=== PATIENT | female | born 1990 ===

== ENCOUNTER 2016-09-03 21:30 | Inpatient (IN) | payer OTHER ==
[2016-09-03] MEDS ORDERED: DEXTROSE 5%-LACTATED RINGERS 1,000 ML IV ONE (23:00)
[2016-09-03 23:02] LABS: BASOPHIL 0.4 % (0-2.0); EOSINOPHIL 1.6 % (0-4.5); MCH 30.9 pg (25.7-33.7); MCHC 33.6 g/dl (32.0-36.0); MEAN CELL VOLUME 91.9 fl (80-96); MEAN PLT VOLUME 10.1 fl (7.5-11.1); NEUTROPHILS 72.6 % (42.8-82.8); PLATELET COUNT 243 K/MM3 (134-434); RDW 12.9 % (11.6-15.6); WHITE BLOOD COUNT 9.8 K/mm3 (4.0-10.0)
[2016-09-03 23:16] LABS: INR 0.96 (0.82-1.09); PROTHROMBIN TIME (PATIENT) 10.5 SEC (9.98-11.88)
[2016-09-03 23:18] LABS: ACTIVATED PTT 23.3 SECONDS (26.9-34.4)
[2016-09-03 23:25] LABS: ANION GAP 10 (8-16); CALCIUM 8.6 mg/dL (8.5-10.1); CO2 23 mmol/L (21-32); CREATININE 0.6 mg/dL (0.55-1.02); GLUCOSE,RANDOM 83 mg/dL (74-106)
[2016-09-04 00:03] VITALS: BMI 30.7
[2016-09-04] MEDS ORDERED: DEXTROSE 5%-LACTATED RINGERS 1,000 ML IV SCH ×2 (01:51→08:00)
[2016-09-04] MEDS ORDERED: ELECTROLYTE-148 SOLN 1,000 ML IV ONE ×2 (03:30→06:00)
[2016-09-04] MEDS ORDERED: FENTANYL/BUPIVACAINE/NS/PF - PCEA - 50 ML DISP.SYRIN EP SCH ×2 (04:30→05:20)
[2016-09-04] MEDS: IBUPROFEN 600 MG TABLET (FP) PO PRN ×3 (07:45→22:39)
[2016-09-04] MEDS ORDERED: BENZOCAINE 28 GM HEMORRHOIDAL OINTMENT TP PRN (07:55)
[2016-09-04] MEDS ORDERED: BENZOCAINE 20% 57 GM BOTTLE TP PRN (07:55)
[2016-09-04] MEDS ORDERED: METHYLERGONOVINE MALEATE 0.2 MG/1 ML AMP IM PRN (07:55)
[2016-09-04] MEDS ORDERED: BISACODYL 10 MG SUPP.RECT RC PRN (07:55)
[2016-09-04] MEDS ORDERED: WITCH HAZEL 50% (TUCKS) 40 PAD/JAR PAD TP PRN (07:55)
[2016-09-04] MEDS ORDERED: D5W-LR W/ 20 UNITS OXYTOCIN 1,000 ML IV SCH (08:00)
--- NOTE | 2016-09-04 08:03 | HP ---
Past Medical History - Admission Chief Complaint: Rupture of membrane History of Present Illness: 26 yo @ 40 weeks gestation, EDC 09/03/16, presents c/o rupture of membrane. She c/o mild discomfort. History Source: Patient Limitations to Obtaining History: No Limitations - Past Medical History ...: 4 ...Para: 3 ...Term: 3 ...: 0 ...Spon : 0 ...Induced : 1 ...Multiple Gestation: 1 ...LMP: 11/28/15 ... Weeks Gestation by Dates: 40 ...EDC by Dates: 09/03/16 ...EDC by Sono: 09/03/16 - Past Surgical History Past Surgical History: Yes: Hx Myomectomy: No Hx Transabdominal Cerclage: No - Smoking History Smoking history: Never smoked Have you smoked in the past 12 months: No - Alcohol/Substance Use Hx Alcohol Use: No History of Substance Use: reports: None - Social History Usual Living Arrangement: Yes: With Significant Other History of Recent Travel: No Home Medications - Allergies Allergies/Adverse Reactions: Allergies Allergy/AdvReac Type Severity Reaction Status Date / Time acetaminophen [From Percocet] Allergy Intermediate Itching Verified 08/12/16 07: 52 Opioids - Morphine Analogues Allergy Intermediate Swelling Verified 08/12/16 07: 52 oxycodone HCl [From Percocet] Allergy Intermediate Itching Verified 08/12/16 07: 52 - Home Medications Home Medications: Ambulatory Orders Vitamins (Sj[facility]) - 1 tab PO DAILY 06/30/16 Review of Systems - Review of Systems Constitutional: reports: No Symptoms Eyes: reports: No Symptoms HENT: reports: No Symptoms Neck: reports: No Symptoms Cardiovascular: reports: No Symptoms Respiratory: reports: No Symptoms Gastrointestinal: reports: No Symptoms Genitourinary: reports: Pain, Other (Leakage of fluid) Breasts: reports: No Symptoms Reported Musculoskeletal: reports: No Symptoms Integumentary: reports: No Symptoms Neurological: reports: No Symptoms Endocrine: reports: No Symptoms Hematology/Lymphatic: reports: No Symptoms Psychiatric: reports: No Symptoms Pain Intensity: 4 Physical Exam - Maternity Vital Signs: Vital Signs Temperature 98.9 F 09/04/16 07:00 Pulse Rate 75 09/04/16 06:45 Respiratory Rate 20 09/04/16 06:45 Blood Pressure 114/65 09/04/16 06:45 O2 Sat by Pulse Oximetry (%) 99 09/04/16 05:30 Constitutional: Yes: Well Nourished Eyes: Yes: WNL, Conjunctiva Clear HENT: Yes: Atraumatic Neck: Yes: Supple Cardiovascular: Yes: Regular Rate and Rhythm Lungs: Clear to auscultation - Abdominal Exam/OB Number of Fetuses: Single Presentation: Vertex Contractions: Yes - Vaginal Exam/OB Presentation: Vertex/Position - Physical Exam Psychiatric: Yes: Alert, Oriented - Labs Lab Results: CBC, BMP 09/03/16 22:45 09/03/16 22:45 Problem List - Problems (1) Rupture of membranes with clear amniotic fluid Code(s): O42.019 - PRETRM THERESA ROM, ONSET LABOR W/N 24 HOURS OF RUPT, UNSP TRI Assessment/Plan Spontaneous rupture of membrane Admit to L&D Previous for twin delivery Analgesia as needed Anticipate
--- NOTE | 2016-09-04 08:05 | PN ---
Delivery - Delivery Vaginal Delivery: V-Leonora Type of Anesthesia: Epidural Episiotomy/Laceration: None EBL (cc): 300 Delivery, Single - Feeding Plan Initial Plan: Elected not to breastfeed exclusively throughout hospitalization
--- NOTE | 2016-09-04 08:11 | DS ---
Physical Exam-[employer] Vital Signs: Vital Signs Temperature 98.9 F 09/04/16 07:00 Pulse Rate 75 09/04/16 06:45 Respiratory Rate 20 09/04/16 06:45 Blood Pressure 114/65 09/04/16 06:45 O2 Sat by Pulse Oximetry (%) 99 09/04/16 05:30 Constitutional: Yes: Well Nourished Eyes: Yes: Conjunctiva Clear HENT: Yes: Atraumatic Neck: Yes: Supple, Trachea Midline Cardiovascular: Yes: Regular Rate and Rhythm Respiratory: Yes: Regular, CTA Bilaterally Gastrointestinal: Yes: Normal Bowel Sounds Pelvis: Yes: WNL External Genitalia: Yes: Normal Vaginal Exam: Yes: Bleeding Cervix: Yes: Normal Uterus: Yes: Firm ....Post : Yes: Uterus firm, Moderate lochia serosa Breast(s): Yes: WNL Musculoskeletal: Yes: WNL Wound/Incision: Yes: Clean/Dry, Well Approximated Neurological: Yes: Alert, Oriented ...Motor Strength: WNL Psychiatric: Yes: Alert, Oriented Labs: CBC, BMP 09/03/16 22:45 09/03/16 22:45 Delivery - Delivery Vaginal Delivery: V-Leonora Type of Anesthesia: Epidural Episiotomy/Laceration: None EBL (cc): 300 Delivery, Single - Feeding Plan Initial Plan: Elected not to breastfeed exclusively throughout hospitalization Remarks - Remarks Remarks: Normal vaginal delivery after previous Nose / Oropharynx suctioned @ perineum. Cord clamped and cut. Placenta expelled spontaneously intact. Discharge Summary Reason For Visit: LABOR ADMIT Current Active Problems Rupture of membranes with clear amniotic fluid (Acute) Vaginal delivery following previous section, delivered (Acute) Procedures: Principal: Hospital Course: Routine care Condition: Good - Instructions Diet, Activity, Other Instructions: Regular diet No douching, no sexual intercourse x 6 weeks F/U in clinic in 6 weeks Disposition: HOME - Home Medications Comprehensive Discharge Medication List: Ambulatory Orders Vitamins (Sjr) - 1 tab PO DAILY 06/30/16
[2016-09-04] MEDS: FERROUS SO4 325 MG TABLET (FP) PO SCH ×3 (09:55→18:32)
[2016-09-04] MEDS: PRENATAL VITAMINS W/ FOLIC ACID TABLET (FP) PO SCH (09:55)
[2016-09-04] MEDS: ACETAMINOPHEN 325 MG TABLET (FP) PO PRN ×2 (11:52→22:38)
[2016-09-04] MEDS ORDERED: PROMETHAZINE HCL 25 MG/1 ML VIAL IVPUSH ONE (23:00)
[2016-09-04] MEDS ORDERED: BUTORPHANOL TARTRATE 1 MG/ML VIAL IVPUSH ONE (23:00)
[2016-09-05] MEDS: ACETAMINOPHEN 325 MG TABLET (FP) PO PRN ×2 (06:16→18:52)
[2016-09-05] MEDS: IBUPROFEN 600 MG TABLET (FP) PO PRN ×2 (06:16→18:52)
[2016-09-05 09:11] LABS: BASOPHIL 0.4 % (0-2.0); EOSINOPHIL 2.2 % (0-4.5); MCH 31.1 pg (25.7-33.7); MCHC 33.3 g/dl (32.0-36.0); MEAN CELL VOLUME 93.2 fl (80-96); MEAN PLT VOLUME 10.2 fl (7.5-11.1); NEUTROPHILS 70.5 % (42.8-82.8); PLATELET COUNT 204 K/MM3 (134-434); RDW 13.2 % (11.6-15.6); WHITE BLOOD COUNT 10.9 K/mm3 (4.0-10.0)
[2016-09-05] MEDS ORDERED: DIPHTH,PERTUSS(ACELL),TET 0.5 ML DISP.SYRIN IM ONE (10:00)
[2016-09-05] MEDS: PRENATAL VITAMINS W/ FOLIC ACID TABLET (FP) PO SCH (10:33)
[2016-09-05] MEDS: FERROUS SO4 325 MG TABLET (FP) PO SCH ×3 (10:33→19:06)
[2016-09-05] MEDS ORDERED: SENNOSIDES/DOCUSATE COMBO (SENNA PLUS) TABLET (UD) PO PRN (22:00)
[2016-09-06] MEDS: ACETAMINOPHEN 325 MG TABLET (FP) PO PRN (05:47)
[2016-09-06] MEDS: IBUPROFEN 600 MG TABLET (FP) PO PRN (05:47)
[2016-09-06 07:58] VITALS: BP 113/61; PULSE 60; TEMP 98.3
[2016-09-06] MEDS: PRENATAL VITAMINS W/ FOLIC ACID TABLET (FP) PO SCH (09:14)
[2016-09-06] MEDS: FERROUS SO4 325 MG TABLET (FP) PO SCH (09:14)
== END 2016-09-06 12:15 | disposition home or self-care (01) | DRG 560 ==
LOC: JLDR 21:30 → J3W 09-04 09:08
PROVIDERS: ADMIT Obstetrics & Gynecology; ATTEND Obstetrics & Gynecology
PROC: 10E0XZZ Delivery of Products of Conception, External Approach (ICD-10-PCS; principal; 2016-09-04)
DX: O48.0 Post-term pregnancy (principal); Z3A.40 40 weeks gestation of pregnancy; Z37.0 Single live birth
CPT/HCPCS: 36415; 59409; 80048; 85025; 85610; 85730; 86593; 86850; 86900; 86901; 90715